=== PATIENT | female | born 1970 | race Caucasian/White ===

== ENCOUNTER 2023-08-18 13:25 | Emergency (ER) | payer MEDICAID, OTHER ==
[~2023-08-18] VITALS: Ht 162.6 cm; Wt 69.0 kg
[2023-08-18 13:31] VITALS: O2SAT 97
[2023-08-18] MEDS ORDERED: BACITRACIN ZINC OINT UDPKT TOP ONE (13:45)
[2023-08-18] MEDS ORDERED: IBUPROFEN 600MG TABLET PO ONE (13:45)
[2023-08-18] MEDS ORDERED: BO1 TP (14:26)
[2023-08-18] MEDS ORDERED: IBUP-2029 MT (14:26)
[2023-08-18 15:17] VITALS: BP 138/61; PULSE 69; RESP 18; TEMP 98.6
== END 2023-08-18 15:18 | disposition home or self-care (01) ==
LOC: ER 13:25
DX: S40.021A Contusion of right upper arm, initial encounter (principal); E11.9 Type 2 diabetes mellitus without complications; Z90.49 Acquired absence of other specified parts of digestive tract; W18.39XA Other fall on same level, initial encounter; Y93.89 Activity, other specified; Y92.89 Other specified places as the place of occurrence of the external cause; Y99.8 Other external cause status
CPT/HCPCS: 73080; 73090; 73110; 99284

== ENCOUNTER 2025-06-22 18:19 | Emergency (ER) | payer MEDICAID, OTHER ==
[~2025-06-22] VITALS: Ht 157.5 cm; Wt 69.0 kg
[~2025-06-22 18:19] MED LIST: BO1 TP; IBUP-2029 MT
[2025-06-22 18:44] VITALS: TEMP 37.2; O2SAT 98
[2025-06-22 20:29] LABS: CLARITY URINE CLEAR (CLEAR); COLOR URINE YELLOW (YELLOW); GLUCOSE URINE NEGATIVE (NEGATIVE); KETONES URINE TRACE (NEGATIVE); LEUKOCYTE ESTERASE URINE 1+ (NEGATIVE); NITRITE URINE NEGATIVE (NEGATIVE); OCCULT BLOOD URINE TRACE (NEGATIVE); PH URINE 5.5 (4.5-8.0); PROTEIN URINE NEGATIVE (NEGATIVE); SPECIFIC GRAVITY URINE 1.023 (1.005-1.030); UROBILINOGEN URINE 1.0 E.U./dL (0.2-1.0)
[2025-06-22] MEDS: ACETAMINOPHEN 500MG TABLET PO ONE (20:45)
[2025-06-22 20:49] LABS: BACTERIA URINE 2+; RBC URINE 0-2 /hpf (0-2); SQUAMOUS EPITHELIAL CELL URINE 1+ /lpf (RARE/1+)
[2025-06-22] MEDS ORDERED: NITR100C MT (21:22)
[2025-06-22] MEDS ORDERED: VALA10002 MT (21:22)
[2025-06-22 21:48] VITALS: BP 112/63; PULSE 66; RESP 18; O2SAT 99
== END 2025-06-22 21:49 | disposition home or self-care (01) ==
LOC: ER 18:37
DX: B02.9 Zoster without complications (principal); N39.0 Urinary tract infection, site not specified; E11.9 Type 2 diabetes mellitus without complications; Z90.49 Acquired absence of other specified parts of digestive tract; Z79.624 Long term (current) use of inhibitors of nucleotide synthesis
CPT/HCPCS: 81003; 99283